=== PATIENT | female | born 1955 | race Caucasian/White ===

== ENCOUNTER → 2023-11-01 21:00 | Outpatient (REF) | payer OTHER, SELFPAY | LOC: DHSLP 21:00 | PROVIDERS: ATTENDING PHYSICIAN Internal Medicine; FAMILY PHYSICIAN Family Medicine | DX: G47.33 Obstructive sleep apnea (adult) (pediatric) (principal) | CPT/HCPCS: 95800 ==

== ENCOUNTER → 2023-11-09 08:04 | Outpatient (REF) | payer OTHER, SELFPAY | LOC: RAD 08:04 | PROVIDERS: ATTENDING PHYSICIAN Student in an Organized Health Care Education/Training Program; FAMILY PHYSICIAN Family Medicine | DX: R80.9 Proteinuria, unspecified (principal) | CPT/HCPCS: 93975 ==

== ENCOUNTER → 2023-12-14 12:13 | Outpatient (REF) | payer OTHER, SELFPAY | LOC: HWRAD 12:13 | PROVIDERS: ATTENDING PHYSICIAN Neurological Surgery; FAMILY PHYSICIAN Family Medicine | DX: M48.062 Spinal stenosis, lumbar region with neurogenic claudication (principal) | CPT/HCPCS: 72120 ==